=== PATIENT | male | born 1945 | race Caucasian/White ===

== ENCOUNTER → 2017-06-13 | Day surgery (SDC) | payer MEDICARE, OTHER ==
[~2017-06-13] MED LIST: ASPIRIN325 PO; ATORVASTATIN CA40 MG PO; BUMETANIDE0.25 MG/1 PO; FLONASE 0.05%50 MCG NASAL; LANSOPRAZOLE30 MG PO; LISINOPRIL20 MG PO; MINOXIDIL10 MG PO; NORCO 5-325 TA1 EACH PO; NORVASC2.5 MG PO; PROSCAR 5MG TABL5 M1 PO; TOPROL XL25 MG PO; TRIAMCINOLONE A80 G2 TOP; UNICOMPLEX M TA1 TA1 PO; XALATAN2.5 ML OPHTHALMIC
[2017-06-13 10:05] LABS: HEMOGLOBIN 13.6 gm/dL (14.0-18.0); MCH 29.9 pg (26.0-34.0); MCHC 34.1 g/dL (28.0-37.0); MCV 87.7 fL (80.0-100.0); RBC 4.56 mil/uL (4.50-6.00); RDW-CV 13.2 % (10.5-14.5); WBC 8.4 thou/uL (4.0-11.0)
[2017-06-13 10:13] LABS: CALCIUM 9.2 mg/dL (8.5-10.1); CREATININE 4.1 mg/dL (0.6-1.3); POTASSIUM 4.4 mmol/L (3.5-5.1)
[2017-06-13 10:18] LABS: ALBUMIN 3.8 g/dL (3.4-5.0); TOTAL BILIRUBIN 0.7 mg/dL (<0.1-1.0); TOTAL PROTEIN 7.3 g/dL (6.4-8.2)
--- NOTE | 2017-06-13 15:24 | EKG ---
[place] [address] ELECTROCARDIOGRAM REPORT Name: SVITLANA VITALE Room: [facility]#: [id number] Admission: 06/13/17 Attend Phys: Jam Jordan DO Discharge: Date of : 45 Report #: [id number] THIS REPORT FOR: //name// [facility] Test Date: 2017-06-13 Test Time: 10:11:54 Pat Name: SVITLANA VITALE Department: Room: Gender: M Nursery Teacher: : 1945 Requested By: Jam Jordan Order Number: [id number] Reading MD: Nathanael Royal Measurements Intervals [place] Rate: 56 P: 53 SC: 185 QRS: 9 QRSD: 107 T: 45 QT: 450 QTc: 435 Interpretive Statements Sinus rhythm No previous ECG available for comparison Electronically Signed On 06-13-2017 15:24:42 CDT by Nathanael Royal [email or web address] <ELECTRONICALLY SIGNED> By: Nathanael Royal MD, [facility] 06/13/17 1524 1011 1011 Nathanael Royal MD, FACC /EPI
--- NOTE | 2017-06-14 12:23 | OP ---
[address] [address] OPERATIVE REPORT Name: IAMSVITLANA Hai Room: [facility]#: [id number] Admission: 06/13/17 Attend Phys: Jam Jordan DO Discharge: Date of : 45 Report #: [id number] THIS REPORT FOR: //name// CC: Bebeto Jordan DATE OF SERVICE: 06/13/2017 PREOPERATIVE DIAGNOSIS: Chronic kidney disease. POSTOPERATIVE DIAGNOSIS: Chronic kidney disease. OPERATION: Creation of left radiocephalic arteriovenous fistula. SURGEON: Jam Jordan DO TRANSIT AUTHORITY POLICE OFFICER: ZHENG Fraser. ANESTHESIA: LMA. ESTIMATED BLOOD LOSS: 50 mL. FLUIDS: Included 250 crystalloid. URINE OUTPUT: None. SPECIMENS: None. COMPLICATIONS: None. FINDINGS: The left cephalic vein at the wrist appeared to be adequate for access, dilated up to 3.5 mm without resistance. The left radial artery was about 4 mm in diameter and soft, excellent for inflow. After creation of the fistula, there was a good bruit auscultated at the forearm with the Doppler, overlying the course of the cephalic vein and an excellent distal radial artery Doppler signal as well that augmented with fistula compression. CLINICAL HISTORY: The patient is a 71-year-old man with known chronic kidney disease, nearing end-stage renal disease. Recommendations were made for preemptive access creation in anticipation in need of dialysis. Through venous vein mapping, his left cephalic vein was noted to be of good caliber throughout the course in the upper arm; therefore, recommendation was made to create the fistula distally as possible in the wrist. DETAILS OF PROCEDURE: After informed consent was obtained, the patient was taken to the operating room and placed on the OR bed in supine [place], [place] [address] OPERATIVE REPORT Name: SVITLANA VITALE Room: [facility].#: [id number] Admission: 06/13/17 Attend Phys: Jam Jordan DO Discharge: Date of : 45 Report #: [id number] administered LMA anesthesia by the anesthesia team. Left upper extremity was prepped and draped in the usual sterile fashion. Full timeout was performed, identifying correct patient and procedure. Next, a longitudinal incision made on the distal aspect of the left wrist. Dissection was carried down through skin and subcutaneous tissues, both sharply and with electrocautery. The cephalic vein was identified, was circumferentially mobilized and controlled with Silastic vessel loop. I then isolated out the left radial artery, controlled it proximally and distally with Silastic vessel loops in Tse fashion. At this point, I then administered 5000 units of intravenous heparin, this was allowed to circulate for 3 minutes. I then transected the vein distally, ligated stump with a 3-0 silk tie, especially the vein guaman, severely dilated the vein up to 3.5 mm without resistance. I then occluded the radial artery, made an arteriotomy, extended with Tse scissors and then performed end-to-side anastomosis with running 7-0 Prolene suture. Prior to completion of the suture line, the artery was allowed to fore and backbleed and the vein backbled. I then restored flow first up the fistula and then distally to the hand. At this point, he had a good bruit auscultated up this course of the cephalic vein in the forearm and good distal radial artery signal that augmented with fistula compression. At this point, the wound was irrigated with antibiotic solution, was closed in layers with 3-0 Vicryl and 4-0 Monocryl on skin. Dermabond was applied. All sponge, sharp and instrument counts reported correct x 2. He tolerated the procedure well and was transferred to recovery area in stable condition. <ELECTRONICALLY SIGNED> By: Jam Jordan DO 06/14/17 1223 1236 1328Aevelina Jordan DO /nt
== END | disposition home or self-care (01) ==
LOC: M.SUR 07:14
PROVIDERS: Surgery
DX: N18.6 End stage renal disease (principal); Z79.899 Other long term (current) drug therapy; Z79.82 Long term (current) use of aspirin; Z79.891 Long term (current) use of opiate analgesic

== ENCOUNTER 2019-03-25 18:27 | Emergency (ER) | payer MEDICARE, OTHER ==
[~2019-03-25] VITALS: Ht 182.9 cm; Wt 90.7 kg
[2019-03-25 19:11] LABS: ABSOLUTE EOSINOPHILS 1.1 thou/uL (0.0-0.7); ABSOLUTE LYMPHOCYTES 1.1 thou/uL (0.8-5.3); ABSOLUTE MONOCYTES 0.6 thou/uL (0.0-1.2); ABSOLUTE NEUTROPHILS 8.3 thou/uL (1.6-8.1); BASOPHILS 0.3 %; EOSINOPHILS 9.8 %; HEMATOCRIT 24.8 % (42.0-52.0); HEMOGLOBIN 8.9 gm/dL (14.0-18.0); LYMPHOCYTES 9.9 %; MCH 31.6 pg (26.0-34.0); MCHC 35.8 g/dL (28.0-37.0); MCV 88.1 fL (80.0-100.0); MONOCYTES 5.2 %; MPV 6.8 fl. (7.2-11.1); NUCLEATED RBCS 0 /100WBC; PLATELET COUNT* 337 thou/uL (150-400); POLYS 74.8 %; RBC 2.82 mil/uL (4.50-6.00); RDW-CV 13.6 % (10.5-14.5); WBC 11.1 thou/uL (4.0-11.0)
[2019-03-25 19:18] LABS: CALCIUM 7.9 mg/dL (8.5-10.1); CREATININE 5.5 mg/dL (0.6-1.3); POTASSIUM 4.4 mmol/L (3.5-5.1)
[2019-03-25 19:30] LABS: ALBUMIN 2.3 g/dL (3.4-5.0); TOTAL BILIRUBIN 0.4 mg/dL (<0.1-1.0); TOTAL PROTEIN 5.8 g/dL (6.4-8.2)
[2019-03-25 21:21] VITALS: BP 120/58
--- NOTE | 2019-03-26 09:22 | EKG ---
[place] [address] ELECTROCARDIOGRAM REPORT Name: SVITLANA VITALE [id number] Admission: 03/25/19 Attend Phys: Discharge: 03/25/19 Date of : 45 Report #: [id number] THIS REPORT FOR: //name// [facility] ED Test Date: 2019-03-25 Test Time: 18:35:01 Pat Name: SVITLANA VITALE Department: Room: Gender: Side Sawyer: : 1945 Requested By: Dinesh Rosenberg Order Number: [id number] MD: Nathanael Royal Measurements Intervals [place] Rate: 74 P: 74 TX: 172 QRS: 49 QRSD: 102 T: 64 QT: 413 QTc: 459 Interpretive Statements Sinus rhythm Baseline wander in lead(s) V6 Compared to ECG 06/13/2017 10:11:54 No significant changes Electronically Signed On 03-26-2019 9:22:01 BOAT LABORER by Nathanael Royal [email or web address] <ELECTRONICALLY SIGNED> By: Nathanael Royal MD, [facility] 03/26/19 0922 1835 1835 Nathanael Royal MD, FACC /EPI
== END 2019-03-25 21:24 | disposition home or self-care (01) ==
LOC: M.ERS 18:27
PROVIDERS: Emergency Medicine
DX: I48.0 Paroxysmal atrial fibrillation (principal); I10 Essential (primary) hypertension; E78.00 Pure hypercholesterolemia, unspecified

== ENCOUNTER 2019-04-29 12:24 | Inpatient (IN) | payer MEDICARE, OTHER ==
[~2019-04-29] VITALS: Ht 182.9 cm; Wt 83.6 kg
[~2019-04-29 12:24] MED LIST changes: -ATORVASTATIN CA40 MG PO; +LIPITOR40 MG PO
[2019-04-29 12:31] VITALS: BP 141/87
[2019-04-29] MEDS ORDERED: MINOXIDIL2.5 MG PO (12:42)
[2019-04-29] MEDS ORDERED: ELIQUIS5 MG PO (12:42)
[2019-04-29] MEDS ORDERED: PRO-STAT LIQUID30 M1 PO (12:43)
[2019-04-29] MEDS ORDERED: PROPAFENONE HC325 MG PO (12:43)
[2019-04-29] MEDS ORDERED: MIRALAX119 GM PO (12:43)
[2019-04-29] MEDS ORDERED: NASACORT10.8 ML TOP (12:44)
[2019-04-29 12:51] LABS: ABSOLUTE BASOPHILS 0.1 thou/uL (0.0-0.2); ABSOLUTE EOSINOPHILS 0.2 thou/uL (0.0-0.7); ABSOLUTE MONOCYTES 0.6 thou/uL (0.0-1.2); ABSOLUTE NEUTROPHILS 10.4 thou/uL (1.6-8.1); BASOPHILS 0.7 %; EOSINOPHILS 1.8 %; HEMATOCRIT 24.4 % (42.0-52.0); HEMOGLOBIN 8.3 gm/dL (14.0-18.0); LYMPHOCYTES 8.1 %; MCH 29.5 pg (26.0-34.0); MCHC 33.9 g/dL (28.0-37.0); MONOCYTES 4.6 %; MPV 6.4 fl. (7.2-11.1); NUCLEATED RBCS 0 /100WBC; PLATELET COUNT* 338 thou/uL (150-400); POLYS 84.8 %; RBC 2.81 mil/uL (4.50-6.00); WBC 12.2 thou/uL (4.0-11.0)
[2019-04-29 13:02] LABS: APTT 83.2 Seconds (25.0-31.3); INR 1.3; PROTIME 13.4 Seconds (9.20-11.50)
[2019-04-29 13:08] LABS: CALCIUM 8.9 mg/dL (8.5-10.1); CREATININE 3.6 mg/dL (0.6-1.3); POTASSIUM 3.8 mmol/L (3.5-5.1)
[2019-04-29 13:19] LABS: ALBUMIN 2.5 g/dL (3.4-5.0); TOTAL BILIRUBIN 0.4 mg/dL (<0.1-1.0); TOTAL PROTEIN 6.9 g/dL (6.4-8.2)
[2019-04-29 14:42] LABS: INFLUENZA A ANTIGEN Negative (Negative); INFLUENZA B ANTIGEN Negative (Negative)
[2019-04-29 15:49] VITALS: BP 128/68
[2019-04-29 16:20] VITALS: BP 144/88
--- NOTE | 2019-04-29 17:21 | 2DMMODE ---
[place] [address] 2 D/M-MODE ECHOCARDIOGRAM Name: SVITLANA VITALE Room: [address] IN ..#: [id number] Admission: 04/29/19 Attend Phys: Kenya guerrero Sa Discharge: Date of : 45 Date of Service: 04/29/19 1720 Report #: [id number] THIS REPORT FOR: cc: George Elizondo Chad W. DO Blick,Nathanael Nicole MD [facility] ~ APPROVED REPORT Study performed: 04/29/2019 15:21:31 EXAM: Comprehensive 2D, Doppler, and color-flow Echocardiogram Patient Location: In-Patient Room #: er Status: routine BSA: 2.08 HR: 68 bpm BP: 134/79 mmHg Rhythm: NSR Other Information Study Quality: Good Indications Dyspnea 2D Dimensions IVSd: 14.17 (7-11mm) LVOT Diam: 20.65 (18-24mm) LVDd: 54.17 mm PWd: 11.95 (7-11mm) Ascending Ao: 34.33 (22-36mm) LVDs: 33.35 (25-40mm) Aortic Root: 36.52 mm Volumes Left Atrial Volume (Systole) LA ESV Index: 55.30 mL/m2 Aortic Valve AoV Peak Hiram.: 1.85 m/s AO Peak Gr.: 13.73 mmHg LVOT Max P.74 mmHg AO Mean Gr.: 7.55 mmHg LVOT Mean P.43 mmHg LVOT Max V: 1.39 m/s AO V2 VTI: 39.00 cm LVOT Mean V: 0.84 m/s RAYSHAWN (VTI): 2.68 cm2 LVOT V1 VTI: 31.17 [place] [address] 2 D/M-MODE ECHOCARDIOGRAM Name: SVITLANA VITALE Room: [address]#: [id number] Admission: 04/29/19 Attend Phys: Kenya guerrero Sa Discharge: Date of : 45 Date of Service: 04/29/19 1720 Report #: [id number] Mitral Valve E/A Ratio: 1.08 MV Decel. Time: 212.37 ms MV E Max Hiram.: 1.04 m/s MV PHT: 61.59 ms MVA (PHT): 3.57 cm2 TDI E/Lateral E': 10.40 E/Medial E': 11.56 Medial E' Hiram.: 0.09 m/s Lateral E' Hiram.: 0.10 m/s Pulmonary Valve PV Peak Hiram.: 1.42 m/s PV Peak Gr.: 8.09 mmHg Tricuspid Valve RAP Estimate: 5.00 mmHg TR Peak Gr.: 48.95 mmHg RVSP: 54.00 mmHg PA Pressure: 54.00 mmHg Left Ventricle The left ventricle is normal size. There is normal LV segmental wall motion. Mild concentric left ventricular hypertrophy. Left ventricular systolic function is normal. The left ventricular ejection fraction is within the normal range. LVEF is 60-65%. Right Ventricle Right ventricle is dilated. The right ventricular systolic function is normal. Atria Left atrium is severely dilated. Right atrium is dilated. Aortic Valve Mild aortic valve sclerosis. No aortic regurgitation is present. Mild aortic stenosis. Mitral Valve The mitral valve is normal in structure. There is no mitral valve regurgitation noted. No evidence of mitral valve stenosis. Tricuspid Valve The tricuspid valve is normal in structure. Mild tricuspid regurgitation. estimated pa pressure 55 [place] [address] 2 D/M-MODE ECHOCARDIOGRAM Name: SVITLANA VITALE Room: [address]#: [id number] Admission: 04/29/19 Attend Phys: Kenya guerrero Sa Discharge: Date of : 45 Date of Service: 04/29/19 1720 Report #: [id number] The pulmonary valve is normal in structure. Mild pulmonic regurgitation. Great Vessels The aortic root is normal in size. IVC is normal in size and collapses >50% with inspiration. Pericardium There is no pericardial effusion. <Conclusion> Mild concentric left ventricular hypertrophy. LVEF is 60-65%. Mild aortic stenosis. Left atrium is severely dilated. Mild tricuspid regurgitation. estimated pa pressure 55 mm Hg <ELECTRONICALLY SIGNED> By: Nathanael Royal MD, FACC 04/29/191719 19 19 Nathanael Royal MD, FACC /INF
[2019-04-29 19:50] VITALS: BP 115/66
[2019-04-30 00:14] VITALS: BP 140/78
[2019-04-30 03:41] VITALS: BP 136/78
[2019-04-30 05:00] LABS: HEMATOCRIT 22.6 % (42.0-52.0); HEMOGLOBIN 7.6 gm/dL (14.0-18.0); MCH 29.4 pg (26.0-34.0); MCHC 33.5 g/dL (28.0-37.0); MCV 87.7 fL (80.0-100.0); MPV 6.8 fl. (7.2-11.1); RBC 2.58 mil/uL (4.50-6.00); RDW-CV 14.8 % (10.5-14.5); WBC 11.3 thou/uL (4.0-11.0)
[2019-04-30 05:10] LABS: CALCIUM 8.1 mg/dL (8.5-10.1); MAGNESIUM 1.9 mg/dL (1.8-2.4); PHOSPHORUS* 3.6 mg/dL (2.5-4.9); POTASSIUM 4.2 mmol/L (3.5-5.1)
[2019-04-30 08:00] VITALS: BP 130/80
[2019-04-30] MEDS ORDERED: COLACE100 MG PO (09:04)
[2019-04-30 12:00] VITALS: BP 136/73
[2019-04-30] MEDS ORDERED: ZINC50 M2 PO (13:55)
[2019-04-30 16:00] VITALS: BP 151/79
[2019-04-30 20:29] VITALS: BP 137/81
[2019-05-01 00:13] VITALS: BP 158/89
[2019-05-01 04:36] LABS: ALBUMIN 1.7 g/dL (3.4-5.0); CALCIUM 7.9 mg/dL (8.5-10.1); PHOSPHORUS* 3.4 mg/dL (2.5-4.9); POTASSIUM 4.1 mmol/L (3.5-5.1)
[2019-05-01 04:37] LABS: CREATININE 7.2 mg/dL (0.6-1.3)
[2019-05-01 04:39] VITALS: BP 161/93
[2019-05-01 08:00] VITALS: BP 145/55; BP 161/91
[2019-05-01 08:38] LABS: ABSOLUTE EOSINOPHILS 0.6 thou/uL (0.0-0.7); ABSOLUTE LYMPHOCYTES 0.8 thou/uL (0.8-5.3); ABSOLUTE MONOCYTES 0.5 thou/uL (0.0-1.2); ABSOLUTE NEUTROPHILS 6.7 thou/uL (1.6-8.1); BASOPHILS 0.4 %; EOSINOPHILS 7.3 %; HEMATOCRIT 20.6 % (42.0-52.0); HEMOGLOBIN 7.1 gm/dL (14.0-18.0); LYMPHOCYTES 8.9 %; MCH 29.9 pg (26.0-34.0); MCHC 34.3 g/dL (28.0-37.0); MONOCYTES 5.7 %; MPV 6.5 fl. (7.2-11.1); NUCLEATED RBCS 0 /100WBC; PLATELET COUNT* 271 thou/uL (150-400); POLYS 77.7 %; RBC 2.37 mil/uL (4.50-6.00); RDW-CV 15.2 % (10.5-14.5); WBC 8.7 thou/uL (4.0-11.0)
[2019-05-01 15:43] VITALS: BP 169/94
[2019-05-01 20:00] VITALS: BP 149/94
[2019-05-02] VITALS: BP 168/96
[2019-05-02 04:00] VITALS: BP 155/84
[2019-05-02 04:46] LABS: HEMATOCRIT 21.1 % (42.0-52.0); HEMOGLOBIN 7.2 gm/dL (14.0-18.0); MCH 29.5 pg (26.0-34.0); MCV 86.8 fL (80.0-100.0); MPV 6.7 fl. (7.2-11.1); RBC 2.43 mil/uL (4.50-6.00); RDW-CV 14.9 % (10.5-14.5); WBC 6.8 thou/uL (4.0-11.0)
[2019-05-02 05:03] LABS: ALBUMIN 1.7 g/dL (3.4-5.0); CALCIUM 8.2 mg/dL (8.5-10.1); MAGNESIUM 1.9 mg/dL (1.8-2.4); PHOSPHORUS* 3.5 mg/dL (2.5-4.9)
[2019-05-02 05:17] LABS: CREATININE 5.1 mg/dL (0.6-1.3)
[2019-05-02 08:15] VITALS: BP 143/83
--- NOTE | 2019-05-02 08:51 | CON ---
[address] [address] CONSULTATION Name: IAMSVITLANA Hai Room: [address] IN M.R.#: [id number] Admission: 04/29/19 Attend Phys: Kenya Blackburn Discharge: Date of : 45 Report #: [id number] THIS REPORT FOR: //name// cc: George Elizondo Chad W. DO ~ THIS REPORT FOR: //name// CC: George August DATE OF SERVICE: 04/30/2019 REQUESTING PHYSICIAN: Kenya August MD REASON FOR CONSULTATION: Assist in providing dialysis. HISTORY OF PRESENT ILLNESS: The patient is a very pleasant 73-year-old gentleman with medical history significant for autosomal dominant polycystic kidney disease, history of progressive renal failure and finally underwent bilateral nephrectomies in March of this year at [facility], became dialysis dependent, on dialysis Saturday, Saturday, Saturday schedule at [facility]. He presents with complaints of shortness of breath. A chest x-ray was done, was diagnosed with bilateral pneumonia, and admitted to the hospital. PAST MEDICAL HISTORY: As I mentioned earlier. In addition to that, he also has hypertension. SOCIAL HISTORY: No tobacco, no alcohol abuse. FAMILY HISTORY: Noncontributory. REVIEW OF SYSTEMS: Positive for shortness of breath. Otherwise, negative. Subjectively, he feels much better now than on admission. PHYSICAL EXAMINATION: GENERAL: Awake, alert, oriented, in no acute distress. VITAL SIGNS: Reviewed. HEENT: Pupils round. NECK: Supple. LUNGS: Bibasilar coarse breath sounds. CARDIOVASCULAR: Regular rate. ABDOMEN: Obese, soft. EXTREMITIES: Lower extremities, trace edema. He has [place] [address] CONSULTATION Name: SVITLANA VITALE Room: [address] IN [facility]#: [id number] Admission: 04/29/19 Attend Phys: Kenya guerrero [place] Discharge: Date of : 45 Report #: [id number] ASSESSMENT: 1. End-stage renal disease. 2. Respiratory failure due to bilateral pneumonia. 3. History of polycystic kidney disease, status post bilateral nephrectomy. 4. History of hypertension. PLAN: 1. Dialysis tomorrow. 2. Continue antibiotics. The patient is tentatively scheduled for a live donor kidney transplant on 05/11, but at this point I think we have to postpone that surgery due to pneumonia. I doubt that he will completely recover from his pneumonia and I do not think he can tolerate being immunosuppressed for the transplant in 12 days. Thank you very much. <ELECTRONICALLY SIGNED> By: Gabo Epperson MD 05/02/19 0851 1138 1259AlexMD анна Stanford
[2019-05-02 12:00] VITALS: BP 139/84
[2019-05-02 16:00] VITALS: BP 153/84
[2019-05-02 20:00] VITALS: BP 144/84
[2019-05-03] VITALS: BP 155/98
[2019-05-03 04:00] VITALS: BP 160/93
[2019-05-03 06:07] LABS: HEMATOCRIT 20.6 % (42.0-52.0); MCH 29.4 pg (26.0-34.0); MCHC 33.9 g/dL (28.0-37.0); MCV 86.8 fL (80.0-100.0); MPV 6.8 fl. (7.2-11.1); RBC 2.38 mil/uL (4.50-6.00); WBC 6.5 thou/uL (4.0-11.0)
[2019-05-03 06:23] LABS: ALBUMIN 1.7 g/dL (3.4-5.0); CALCIUM 8.3 mg/dL (8.5-10.1); MAGNESIUM 2.2 mg/dL (1.8-2.4); PHOSPHORUS* 4.7 mg/dL (2.5-4.9); POTASSIUM 3.9 mmol/L (3.5-5.1)
[2019-05-03 06:35] LABS: CREATININE 7.2 mg/dL (0.6-1.3)
[2019-05-03 08:34] VITALS: BP 169/94
[2019-05-03 11:59] VITALS: BP 172/99
[2019-05-03 15:57] VITALS: BP 158/89
[2019-05-03 20:00] VITALS: BP 165/97
[2019-05-04 00:30] VITALS: BP 169/97
[2019-05-04 02:21] VITALS: BP 208/118
[2019-05-04 04:31] VITALS: BP 169/97
[2019-05-04 08:00] VITALS: BP 165/99
[2019-05-04 08:20] LABS: CALCIUM 8.5 mg/dL (8.5-10.1); CREATININE 9.3 mg/dL (0.6-1.3); POTASSIUM 4.7 mmol/L (3.5-5.1)
[2019-05-04 16:00] VITALS: BP 153/91
[2019-05-04 20:00] VITALS: BP 134/86
[2019-05-05] VITALS (7 sets, daily range): BP systolic 135–167; BP diastolic 83–99
[2019-05-05 05:45] LABS: HEMATOCRIT 22.2 % (42.0-52.0); HEMOGLOBIN 7.6 gm/dL (14.0-18.0); MCH 29.4 pg (26.0-34.0); MCHC 34.2 g/dL (28.0-37.0); MPV 6.7 fl. (7.2-11.1); RBC 2.58 mil/uL (4.50-6.00); RDW-CV 15.2 % (10.5-14.5); WBC 6.4 thou/uL (4.0-11.0)
[2019-05-05 06:13] LABS: CALCIUM 8.8 mg/dL (8.5-10.1); PHOSPHORUS* 4.2 mg/dL (2.5-4.9); POTASSIUM 4.1 mmol/L (3.5-5.1)
[2019-05-05 06:15] LABS: CREATININE 6.4 mg/dL (0.6-1.3)
[2019-05-05 06:20] LABS: MAGNESIUM 2.1 mg/dL (1.8-2.4)
[2019-05-06 03:57] VITALS: BP 160/103; BP 160/93
[2019-05-06 08:00] VITALS: BP 165/88
[2019-05-06 16:00] VITALS: BP 130/77
[2019-05-06 20:00] VITALS: BP 143/82
[2019-05-07 00:09] VITALS: BP 139/86
[2019-05-07 08:07] VITALS: BP 153/88
[2019-05-07 12:00] VITALS: BP 132/94
[2019-05-07 14:15] LABS: ALBUMIN 2.3 g/dL (3.4-5.0); CALCIUM 8.9 mg/dL (8.5-10.1); CREATININE 6.8 mg/dL (0.6-1.3); POTASSIUM 4.3 mmol/L (3.5-5.1); TOTAL BILIRUBIN 1.2 mg/dL (<0.1-1.0); TOTAL PROTEIN 6.7 g/dL (6.4-8.2)
[2019-05-07 20:00] VITALS: BP 161/88
[2019-05-08] VITALS: BP 155/88
[2019-05-08 04:00] VITALS: BP 96/48
[2019-05-08 07:38] VITALS: BP 132/80
[2019-05-08 08:55] LABS: ABSOLUTE BASOPHILS 0.1 thou/uL (0.0-0.2); ABSOLUTE EOSINOPHILS 0.7 thou/uL (0.0-0.7); ABSOLUTE LYMPHOCYTES 1.2 thou/uL (0.8-5.3); ABSOLUTE MONOCYTES 0.4 thou/uL (0.0-1.2); ABSOLUTE NEUTROPHILS 5.4 thou/uL (1.6-8.1); BASOPHILS 1.7 %; EOSINOPHILS 8.8 %; HEMOGLOBIN 7.5 gm/dL (14.0-18.0); LYMPHOCYTES 15.1 %; MCH 29.3 pg (26.0-34.0); MCHC 34.2 g/dL (28.0-37.0); MCV 85.6 fL (80.0-100.0); MONOCYTES 4.5 %; MPV 6.3 fl. (7.2-11.1); NUCLEATED RBCS 0 /100WBC; PLATELET COUNT* 333 thou/uL (150-400); POLYS 69.9 %; RBC 2.57 mil/uL (4.50-6.00); RDW-CV 15.3 % (10.5-14.5); WBC 7.8 thou/uL (4.0-11.0)
[2019-05-08 09:00] LABS: CALCIUM 8.5 mg/dL (8.5-10.1); CREATININE 7.1 mg/dL (0.6-1.3); POTASSIUM 4.3 mmol/L (3.5-5.1)
[2019-05-08 13:20] VITALS: BP 143/86
--- NOTE | 2019-05-08 14:57 | EKG ---
[place] [address] ELECTROCARDIOGRAM REPORT Name: SVITLANA VITALE Room: [address] IN [facility]#: [id number] Admission: 04/29/19 Attend Phys: Kenya guerrero Sa Discharge: Date of : 45 Date of Service: 04/29/19 1250 Report #: [id number] THIS REPORT FOR: //name// [facility] ED Test Date: 2019-04-29 Test Time: 12:50:48 Pat Name: SVITLANA VITALE Department: Room: [facility] Gender: M Fibre Optic Cable Splicer: : 1945 Requested By: Ramon Lowery Order Number: [id number] MD: Nathanael Royal Measurements Intervals [place] Rate: 73 P: 41 UT: 213 QRS: 14 QRSD: 118 T: 31 QT: 449 QTc: 495 Interpretive Statements Sinus rhythm Borderline prolonged UT interval Nonspecific intraventricular conduction delay Baseline wander in lead(s) V3 Compared to ECG 03/25/2019 18:35:01 Intraventricular conduction delay now present Electronically Signed On 04-29-2019 14:17:03 AGRICULTURAL LOAN OFFICER by Nathanael Royal [email or web address] <ELECTRONICALLY SIGNED> By: Nathanael Royal MD, [facility] 04/29/19 1417 1250 1250 Nathanael Royal MD, [facility] /EPI
[2019-05-08 21:42] VITALS: BP 147/91
[2019-05-09 08:00] VITALS: BP 139/89
[2019-05-09] MEDS ORDERED: LEVAQUIN 500 M500 M3 PO (10:54)
[2019-05-09] MEDS ORDERED: ACIDOPHILUS1 EAC4 PO (10:54)
[2019-05-09 14:22] VITALS: BP 139/89
== END 2019-05-09 15:00 | disposition home or self-care (01) | DRG 871 ==
LOC: M.ERS 12:24 → M.TBA-ER 13:49 → M.2W 13:49 → M.TBA-ER 14:04 → M.2W 16:02 → M.3W 05-08 16:09
PROVIDERS: Emergency Medicine Emergency Medical Services; Internal Medicine Nephrology; ADMIT Family Medicine
PROC: 5A09357 Assistance with Respiratory Ventilation, Less than 24 Consecutive Hours, Continuous Positive Airway Pressure (ICD-10-PCS; principal; 2019-04-29)
PROC: 5A09357 Assistance with Respiratory Ventilation, Less than 24 Consecutive Hours, Continuous Positive Airway Pressure (ICD-10-PCS; 2019-04-30)
PROC: 5A09357 Assistance with Respiratory Ventilation, Less than 24 Consecutive Hours, Continuous Positive Airway Pressure (ICD-10-PCS; 2019-05-01)
PROC: 5A09357 Assistance with Respiratory Ventilation, Less than 24 Consecutive Hours, Continuous Positive Airway Pressure (ICD-10-PCS; 2019-05-02)
PROC: 5A09357 Assistance with Respiratory Ventilation, Less than 24 Consecutive Hours, Continuous Positive Airway Pressure (ICD-10-PCS; 2019-05-03)
PROC: 5A09357 Assistance with Respiratory Ventilation, Less than 24 Consecutive Hours, Continuous Positive Airway Pressure (ICD-10-PCS; 2019-05-04)
PROC: 5A1D70Z Performance of Urinary Filtration, Intermittent, Less than 6 Hours Per Day (ICD-10-PCS; 2019-05-04)
PROC: 5A09357 Assistance with Respiratory Ventilation, Less than 24 Consecutive Hours, Continuous Positive Airway Pressure (ICD-10-PCS; 2019-05-05)
PROC: 5A09357 Assistance with Respiratory Ventilation, Less than 24 Consecutive Hours, Continuous Positive Airway Pressure (ICD-10-PCS; 2019-05-06)
PROC: 5A1D70Z Performance of Urinary Filtration, Intermittent, Less than 6 Hours Per Day (ICD-10-PCS; 2019-05-06)
PROC: 5A09357 Assistance with Respiratory Ventilation, Less than 24 Consecutive Hours, Continuous Positive Airway Pressure (ICD-10-PCS; 2019-05-07)
PROC: 5A1D70Z Performance of Urinary Filtration, Intermittent, Less than 6 Hours Per Day (ICD-10-PCS; 2019-05-08)
DX: A41.9 Sepsis, unspecified organism (principal); J96.01 Acute respiratory failure with hypoxia; N18.6 End stage renal disease; J15.6 Pneumonia due to other Gram-negative bacteria; E43 Unspecified severe protein-calorie malnutrition; I12.0 Hypertensive chronic kidney disease with stage 5 chronic kidney disease or end stage renal disease; D68.59 Other primary thrombophilia; Z66 Do not resuscitate; E78.5 Hyperlipidemia, unspecified; G47.33 Obstructive sleep apnea (adult) (pediatric); D64.9 Anemia, unspecified; E87.70 Fluid overload, unspecified; I48.91 Unspecified atrial fibrillation; E78.00 Pure hypercholesterolemia, unspecified; Z79.01 Long term (current) use of anticoagulants; Z79.82 Long term (current) use of aspirin; Z79.899 Other long term (current) drug therapy; Z90.5 Acquired absence of kidney; Z90.49 Acquired absence of other specified parts of digestive tract; Z82.49 Family history of ischemic heart disease and other diseases of the circulatory system; Z68.25 Body mass index [BMI] 25.0-25.9, adult; Z99.2 Dependence on renal dialysis; Z79.51 Long term (current) use of inhaled steroids; Z79.2 Long term (current) use of antibiotics

== ENCOUNTER 2020-01-20 16:02 | Inpatient (IN) | payer MEDICARE, OTHER ==
[~2020-01-20] VITALS: Ht 185.4 cm; Wt 79.4 kg
--- NOTE | ~2020-01-20 | OP ---
[address] [address] OPERATIVE REPORT Name: IAMSVITLANA Hai Room: [address] IN M.R.#: [id number] Admission: 01/20/20 Attend Phys: Kristine Jefferson MD Discharge: Date of : 45 Report #: [id number] THIS REPORT FOR: //name// cc: George Elizondo Chad W. DO ~ CC: George Jefferson DICTATED BY: Peri Menard DO DATE OF SERVICE: 01/21/2020 Dictating for Jamal Valadez DO. PREOPERATIVE DIAGNOSIS: Small-bowel obstruction. 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 PRIMARY SURGEON: Jamal Valadez DO. AMMUNITION AND EXPLOSIVES HANDLER: Peri Menard DO, PGY3 SECOND REHAB THERAPIST: Nixon Jefferson MS4. PROCEDURE PERFORMED: Diagnostic laparoscopy converted to laparotomy with release of small-bowel obstruction and small bowel resection with reanastomosis. ANESTHESIA: General and local. ESTIMATED BLOOD LOSS: 20 mL. SPECIMEN REMOVED: Jejunum. COMPLICATIONS: None. INDICATIONS FOR PROCEDURE: The patient is a 74-year-old gentleman that presented to the Emergency Department with complaint of worsening back and abdominal pain. He was admitted with imaging findings concerning for possible bowel obstruction. He underwent a CT abdomen and pelvis that showed some swelling in the right abdomen and distention of the bowel concerning for possible internal hernia; however, the radiology read and images were somewhat vague, so a small bowel follow through was initiated as a CT scan was performed without contrast at 1 hour and 40 minutes of contrast had not left the stomach. Some repeat lab work showed a developing lactic acidosis, so it was recommended that the patient go to the operating room for diagnostic laparoscopy, [place] [address] OPERATIVE REPORT Name: IAMSVITLANA Hai Room: [address] IN [facility]#: [id number] Admission: 01/20/20 Attend Phys: Kristine Jefferson MD Discharge: Date of : 45 Report #: [id number] exploratory laparotomy. The procedure, risks, benefits, possible complications to include bleeding, infection, injury to surrounding structures, need for additional surgery, need for ostomy creation, need for bowel resection, risks of anesthesia, and other risks of surgery were discussed with the patient in great detail. He voiced complete understanding and wished to proceed with surgery. DESCRIPTION OF PROCEDURE: Informed consent was obtained. The patient was taken to the operating room and placed supine on the operating room table. General endotracheal anesthesia was induced without difficulty. Sequential compression devices were placed on bilateral lower extremities. The patient was receiving antibiotics in the perioperative period. The abdomen was prepped and draped in the standard sterile fashion. A timeout was performed to ensure correct patient and procedure. We began by making a small supraumbilical vertical incision using a #15 blade scalpel. Incision was carried down through the subcutaneous tissues using electrocautery. Fascia was incised with electrocautery. Peritoneum was grasped between 2 hemostats and then incised with Metzenbaum scissors. Fascia was grasped between 2 Kochers; 0 Vicryl stay sutures were placed on either side of the fascial opening in a pfcuya-xj-bxphz fashion. A 12 mm Maribel trocar was inserted through the fascial opening. Abdomen was insufflated without difficulty. Laparoscopic camera was inserted and a sweep of the anterior abdominal contents was performed. The stomach appeared dilated transverse colon appeared normal. In the right abdomen, there was some dark dusky and necrotic-appearing small bowel and some inflammatory fluid in the pelvis and right lower quadrant. At this point, the procedure was converted to laparotomy. The camera was removed. Abdomen was desufflated. The trocar was removed. Laparoscopic equipment was passed off the field. The incision was extended inferiorly using a #10 blade scalpel. Incision was carried down through subcutaneous tissues using electrocautery. Once the incision was fully opened the unhealthy portion of bowel was easily visualized. This was grasped and pulled out the entirety of the small bowel was eviscerated and explored. There was an approximately 20 cm segment of jejunum that appeared dark necrotic dusky unhealthy. The remainder of the small bowel appeared quite healthy. The unhealthy portion of bowel tacked to the abdominal wall, initially by the adhesions. This was taken down using electrocautery and once the small bowel was eviscerated, there was an internal hernia secondary to another adhesion. This was also taken down using electrocautery. The unhealthy-appearing portion of bowel was resected. A window was made in the mesentery distal to the unhealthy-appearing small bowel using electrocautery and a hemostat a 75 mm CHIQUIS stapler was used to come across the bowel in a healthy-appearing area. Then, proximal to the unhealthy segment of bowel, another 75 mm load on the CHIQUIS stapler was used to come across this area at a healthy-appearing segment. Once this was done, the mesentery was taken down using the LigaSure. The specimen was passed off for permanent. Staple lines were inspected. They appeared to be hemostatic. The small bowel was again run from ligament of Treitz all the way to the terminal ileum; there did not [place] [address] OPERATIVE REPORT Name: SVITLANA VITALE Room: [address] IN [facility].#: [id number] Admission: 01/20/20 Attend Phys: Kristine Jefferson MD Discharge: Date of : 45 Report #: [id number] adhesions or unhealthy portions of bowel. The small bowel was then reanastomosed in a qalb-uj-ahcx fashion. The corner of the staple line on the antimesenteric side of both the proximal and distal segments were grasped with an Allis. Heavy curved Mayos were used to cut a corner off the bowel. Bowel was again grasped with an Allis and other 75 mm load on the CHIQUIS stapler was inserted through the two segments of bowel. They were anastomosed together. The open portion of the end of the bowel was then grasped 4 Allis, a 16 mm TA stapler was used to staple this closed. Our staple lines were again reinspected. The anastomosis was palpated and was widely patent. Of note, there was some fecalized contents in the distal small bowel. Three 3-0 Vicryl crotch stitches were placed at our staple line on the antimesenteric border. The mesenteric defect on the other side was then closed using 3-0 Vicryl suture in a running fashion. Again, our staple line was inspected. It appeared hemostatic. The bowel all appeared pink and viable and healthy. Small bowel was again inspected; there did not appear to be any other unhealthy portions of bowel. Small bowel was placed back into the abdominal cavity. Abdominal cavity was washed out using a liter of warm saline. The fascia at our incision was then closed using a #1 looped PDS in a running fashion. The subcutaneous tissues were reapproximated using 2-0 Vicryl suture in a simple interrupted and inverted fashion. Skin was reapproximated using hansel. A 30 mL of 0.5% Marcaine were used for local anesthesia. Abdomen was cleansed and dried. A clean sterile silver Mepilex was applied over our incision. The patient tolerated the procedure very well. He was allowed to awaken in the operating room, was transferred to the PACU in stable condition with plans to return to the floor. We also placed an abdominal binder on the patient at the conclusion of the case. By: [id number] Valadez DO /hernán
[~2020-01-20 16:02] MED LIST changes: +ACIDOPHILUS1 EAC4 PO; +COLACE100 MG PO; +ELIQUIS5 MG PO; +LEVAQUIN 500 M500 M3 PO; +MINOXIDIL2.5 MG PO; +MIRALAX119 GM PO; +NASACORT10.8 ML TOP; +PRO-STAT LIQUID30 M1 PO; +PROPAFENONE HC325 MG PO; +ZINC50 M2 PO
[2020-01-20 16:09] VITALS: BP 150/93
[2020-01-20 16:39] LABS: ABSOLUTE BASOPHILS 0.1 thou/uL (0.0-0.2); ABSOLUTE EOSINOPHILS 0.8 thou/uL (0.0-0.7); ABSOLUTE LYMPHOCYTES 1.6 thou/uL (0.8-5.3); ABSOLUTE MONOCYTES 0.8 thou/uL (0.0-1.2); ABSOLUTE NEUTROPHILS 10.6 thou/uL (1.6-8.1); BASOPHILS 0.9 %; EOSINOPHILS 5.6 %; HEMATOCRIT 37.8 % (42.0-52.0); HEMOGLOBIN 12.4 gm/dL (14.0-18.0); LYMPHOCYTES 11.4 %; MCH 28.3 pg (26.0-34.0); MCHC 32.8 g/dL (28.0-37.0); MCV 86.3 fL (80.0-100.0); MONOCYTES 5.5 %; MPV 7.1 fl. (7.2-11.1); NUCLEATED RBCS 0 /100WBC; PLATELET COUNT* 290 thou/uL (150-400); POLYS 76.6 %; RBC 4.38 mil/uL (4.50-6.00); RDW-CV 21.8 % (10.5-14.5); WBC 13.8 thou/uL (4.0-11.0)
[2020-01-20 16:50] LABS: CALCIUM 10.1 mg/dL (8.5-10.1); CREATININE 6.3 mg/dL (0.6-1.3); POTASSIUM 4.6 mmol/L (3.5-5.1)
[2020-01-20] MEDS ORDERED: CALCIUM ACETAT667 MG PO (16:54)
[2020-01-20 16:55] LABS: ALBUMIN 3.8 g/dL (3.4-5.0); TOTAL BILIRUBIN 0.3 mg/dL (<0.1-1.0)
[2020-01-20] MEDS ORDERED: PROSCAR 5MG TABL5 M1 PO (16:55)
[2020-01-20] MEDS ORDERED: MIDODRINE HCL10 MG PO (16:55)
[2020-01-20] MEDS ORDERED: RENVELA0.8 GM PO (16:56)
--- NOTE | 2020-01-20 17:18 | EKG ---
[place] [address] ELECTROCARDIOGRAM REPORT Name: SVITLANA VITALE Room: [facility]#: [id number] Admission: 01/20/20 Attend Phys: Discharge: Date of : 45 Date of Service: 01/20/20 1638 Report #: [id number] THIS REPORT FOR: //name// [facility] ED Test Date: 2020-01-20 Test Time: 16:38:23 Pat Name: SVITLANA VITALE Department: Room: Gender: Medical Concierge: [facility] : 1945 Requested By: Bonnie Aguirre Order Number: [id number] MD: Kenneth Bolton Measurements Intervals [place] Rate: 65 P: -70 AK: 223 QRS: 32 QRSD: 117 T: 69 QT: 446 QTc: 464 Interpretive Statements Sinus rhythm Prolonged AK interval Nonspecific intraventricular conduction delay Compared to ECG 04/29/2019 12:50:48 No significant changes noted Electronically Signed On 01-20-2020 17:18:16 VEHICLE FARE COLLECTOR by Kenneth Bolton [email or web address] <ELECTRONICALLY SIGNED> By: Kenneth Bolton MD, [facility] 01/20/20 1718 1638 1638 Kenneth Bolton MD, [facility] /EPI
[2020-01-20 17:34] LABS: HYPOCHROMASIA 1+; PLATELET ESTIMATE ADEQUATE
[2020-01-20 17:35] LABS: ANISOCYTOSIS Occasional; MICROCYTES Occasional
[2020-01-20 21:45] VITALS: BP 141/83
[2020-01-20 22:00] VITALS: BP 134/88
[2020-01-21 04:29] LABS: HEMOGLOBIN 13.6 gm/dL (14.0-18.0); MCH 28.2 pg (26.0-34.0); MCHC 32.4 g/dL (28.0-37.0); MCV 86.9 fL (80.0-100.0); MPV 7.2 fl. (7.2-11.1); RBC 4.83 mil/uL (4.50-6.00); RDW-CV 21.9 % (10.5-14.5); WBC 14.6 thou/uL (4.0-11.0)
[2020-01-21 04:46] LABS: ALBUMIN 3.4 g/dL (3.4-5.0); CALCIUM 9.6 mg/dL (8.5-10.1); TOTAL BILIRUBIN 0.4 mg/dL (<0.1-1.0); TOTAL PROTEIN 7.3 g/dL (6.4-8.2)
--- NOTE | 2020-01-21 05:08 | NUR ---
PATIENT ADMITTED TO FLOOR AT 2200. PT ALERT/ORIENTED X4. PT WITH FISTULA IN LT FOREARM WITH GAUZE DSG FROM DIALYSIS ON SATURDAY. PT C/O ABD AND BACK PAIN WHICH STARTED YESTERDAY. DR BRONSON'S RESIDENT TO FLOOR TO PULL NG TUBING 4MM AFTER REVIEWING XRAY. PT BECAME NAUSEATED AND HAD SMALL AMOUNT OF BROWN EMESIS. ZOFRAN GIVEN. PT ALSO GIVEN MORPHINE 4MG IV X1. NEW IV STARTED BY PROCESS OWNER IN RT FOREARM. PT SLEPT REST OF SHIFT. PT FROM ER WITH NG IN RT NARE. SMALL AMOUNT OF DRIED BLOOD NOTED. DRAINAGE IN CANNISTER CLEAR YELLOW APPROX 750ML OUT. FREQUENTLY USED ITEMS AND CALL LIGHT WITHIN REACH. SIDERAILS UPX2. PT ORIENTED TO ROOM/POLICIS AND VERBALIZES UNDERSTANDING. WILL CONTINUE TO MONITOR.
[2020-01-21 05:23] LABS: CREATININE 7.7 mg/dL (0.6-1.3); POTASSIUM 5.8 mmol/L (3.5-5.1)
[2020-01-21 08:00] VITALS: BP 97/69
--- NOTE | 2020-01-21 13:12 | NUR ---
Pt is A&O. Resides at home with . Active and independent. Pt has cpap. No hx of HH or SNF. Pt is current at [facility] on a MWF 530am shift, CM updated Rohan at [facility] of admission, CM to fax referral and flowsheets at me. Pt has NG tube in, surgery following. Anticipate dc in a few days. [facility] p:[phone] f:[phone]
[2020-01-21 15:07] LABS: CALCIUM 9.2 mg/dL (8.5-10.1)
[2020-01-21 15:08] LABS: CREATININE 9.1 mg/dL (0.6-1.3)
[2020-01-21 17:39] VITALS: BP 85/55
--- NOTE | 2020-01-21 18:56 | NUR ---
PATIENT IS CURRENTLY IN DIALYSIS. PATIENT IS TENTATIVELY PLANNED FOR SURGERY FOLLOWING DIALYSIS. PATIENT HAD CT SCAN THIS AFTERNOON AND SBFT THIS EVENING. PATIENT HAS HAD NG TUBE TO LOW INTERMITTENT SUCTION WHEN NOT AT TESTS. PATIENT BLOOD PRESSURE HAS RUN LOW TODAY, DR AVALOS NOTIFIED OF LOW BLOOD PRESSURES. PATIENT HAS HAD COMPLAINTS OF RLQ PAIN, TREATED PARTIALLY WITH MORPHINE. PATIENT'S NOTIFIED.
[2020-01-21 20:45] LABS: CALCIUM 9.3 mg/dL (8.5-10.1); CREATININE 4.6 mg/dL (0.6-1.3); POTASSIUM 4.1 mmol/L (3.5-5.1)
[2020-01-21 23:10] VITALS: BP 95/47
[2020-01-22 03:29] VITALS: BP 108/50
[2020-01-22 04:31] LABS: HEMATOCRIT 37.2 % (42.0-52.0); HEMOGLOBIN 12.2 gm/dL (14.0-18.0); MCHC 32.7 g/dL (28.0-37.0); MCV 88.5 fL (80.0-100.0); MPV 7.4 fl. (7.2-11.1); RBC 4.21 mil/uL (4.50-6.00); RDW-CV 22.1 % (10.5-14.5); WBC 12.3 thou/uL (4.0-11.0)
[2020-01-22 04:52] LABS: ALBUMIN 2.7 g/dL (3.4-5.0); CALCIUM 9.1 mg/dL (8.5-10.1); TOTAL BILIRUBIN 0.5 mg/dL (<0.1-1.0); TOTAL PROTEIN 5.9 g/dL (6.4-8.2)
[2020-01-22 05:01] LABS: CREATININE 7.7 mg/dL (0.6-1.3); POTASSIUM 5.9 mmol/L (3.5-5.1)
--- NOTE | 2020-01-22 07:54 | NUR ---
He arrived to the floor at 2310 from PACU. He had an laparotomy, small bowel resection. Midline abdominal incision is covered with island mepilex dressing. He has NG to LIS it's in his rt nares. He does have bowel sounds. He had pain meds x mostly because he gets abdominal cramps. Vitals have improved. He did have to start O2 and she set him on 4L n/c with monitor on. He has slept intermittenly.
[2020-01-22 07:55] VITALS: BP 104/56
--- NOTE | 2020-01-22 17:06 | NUR ---
PATIENT RESTING IN BED. PATIENT IS UP STANDBY ASSIST. PATIENT HAD DIALYSIS THIS AFTERNOON. PATIENT HAS HAD NO COMPLAINTS OF NAUSEA TODAY, REMAINS NPO WITH NG TUBE TO LIS. NG CLAMPED DURING DIALYSIS. PATIENT HAS HAD COMPLAINTS OF ABDOMINAL CRAMPING, FLEXERIL STARTED THIS EVENING. NO BOWEL MOVEMENT TODAY. PATIENT DENIES ANY NEEDS AT THIS TIME. CALL LIGHT WITHIN REACH.
[2020-01-22 20:00] VITALS: BP 153/72
[2020-01-23 00:07] VITALS: BP 177/90
[2020-01-23 04:12] VITALS: BP 174/86
[2020-01-23 05:06] LABS: ABSOLUTE BASOPHILS 0.1 thou/uL (0.0-0.2); ABSOLUTE EOSINOPHILS 0.6 thou/uL (0.0-0.7); ABSOLUTE LYMPHOCYTES 1.1 thou/uL (0.8-5.3); ABSOLUTE MONOCYTES 0.7 thou/uL (0.0-1.2); ABSOLUTE NEUTROPHILS 5.6 thou/uL (1.6-8.1); BASOPHILS 0.7 %; EOSINOPHILS 7.3 %; HEMATOCRIT 32.6 % (42.0-52.0); HEMOGLOBIN 10.8 gm/dL (14.0-18.0); LYMPHOCYTES 13.3 %; MCH 28.8 pg (26.0-34.0); MCHC 33.2 g/dL (28.0-37.0); MCV 86.8 fL (80.0-100.0); MONOCYTES 8.4 %; MPV 7.7 fl. (7.2-11.1); NUCLEATED RBCS 0 /100WBC; PLATELET COUNT* 195 thou/uL (150-400); POLYS 70.3 %; RBC 3.75 mil/uL (4.50-6.00); RDW-CV 22.4 % (10.5-14.5)
[2020-01-23 06:39] LABS: ALBUMIN 2.5 g/dL (3.4-5.0); CALCIUM 9.1 mg/dL (8.5-10.1); CREATININE 6.8 mg/dL (0.6-1.3); TOTAL BILIRUBIN 0.7 mg/dL (<0.1-1.0); TOTAL PROTEIN 5.6 g/dL (6.4-8.2)
[2020-01-23 07:14] VITALS: BP 111/72
[2020-01-23 08:00] VITALS: BP 141/85
[2020-01-23 15:48] VITALS: BP 137/90
--- NOTE | 2020-01-23 18:33 | NUR ---
PATIENT UP AND AMBULATED IN HALLS THIS AFTERNOON, SAT IN CHAIR THIS AM. NO COMPLAINTS OF PAIN. PATIENT HAS NOT YET PASSED FLATUS OR BELCHED; DR. ROUSSEAU IS AWARE. IVF AND SCHED ABX INFUSING ORDERED. DRESSING TO ABD REMAINS C/D/I, ABD BINDER IN PLACE. PATIENT LAYING ON LEFT SIDE AFTER BATH THIS AFTERNOON AND SORIANO/YELLOW DRAINAGE NOTED TO NG. DR. BOOKER NOTIFIED AND SHE NOTIFIED DR. ROUSSEAU. OK FOR PATIENT TO HAVE ICE CHIPS AND OK TO FLUSH NG TUBE IF NEEDED. LABETOLOL Q4 GIVEN ORDERED.
[2020-01-23 20:00] VITALS: BP 139/88
[2020-01-24] VITALS: BP 126/83
[2020-01-24 04:00] VITALS: BP 129/89
[2020-01-24 04:08] LABS: HEMATOCRIT 28.4 % (42.0-52.0); HEMOGLOBIN 9.4 gm/dL (14.0-18.0); MCH 28.6 pg (26.0-34.0); MCHC 33.2 g/dL (28.0-37.0); MCV 86.1 fL (80.0-100.0); MPV 7.3 fl. (7.2-11.1); RBC 3.3 mil/uL (4.50-6.00); RDW-CV 21.3 % (10.5-14.5); WBC 7.5 thou/uL (4.0-11.0)
[2020-01-24 04:35] LABS: ALBUMIN 2.2 g/dL (3.4-5.0); CALCIUM 8.6 mg/dL (8.5-10.1); CREATININE 9.7 mg/dL (0.6-1.3); POTASSIUM 4.2 mmol/L (3.5-5.1); TOTAL BILIRUBIN 0.6 mg/dL (<0.1-1.0); TOTAL PROTEIN 6.1 g/dL (6.4-8.2)
--- NOTE | 2020-01-24 05:46 | NUR ---
ASSUMED PT'S CARE @ 1900. PT ALERT AND ORIENTED. VSS ON RA. MEDS GIVEN PER EMAR. PT SLEPT OFF AND ON THIS SHIFT. DENIES PAIN. NO BM. REMAINS NPO BUT CAN HAVE ICE CHIPS. FELXERIL GIVEN @ HS PER PT'S REQUEST. PT AMBULATES [address] SEVERAL TIMES THIS SHIFT. WILL CONTINUE TO MONITOR.
[2020-01-24 08:00] VITALS: BP 110/76
[2020-01-24 13:12] LABS: HYPOCHROMASIA 1+; MICROCYTES Occasional; PLATELET ESTIMATE ADEQUATE
[2020-01-24 13:13] LABS: ANISOCYTOSIS 1+; OVALOCYTES Occasional
[2020-01-24 15:52] VITALS: BP 143/86
--- NOTE | 2020-01-24 18:20 | NUR ---
Pt remained A&O x4 for entire shift. Pt very pleasant with staff. Pt has walked the hallway 2x this shift. Pt ate about 1 foam cup of ice chips today. Pt had about 350ml of green fluid out of NG tube this shift. Pt has not passed gas, but did belch. Pt also given ducolax suppository. No pain noted this shift. Bed in low position, side rails up, call light within reach. Will continue to monitor.
[2020-01-24 20:00] VITALS: BP 139/72
[2020-01-25 00:26] VITALS: BP 140/69
[2020-01-25 04:19] VITALS: BP 123/73
--- NOTE | 2020-01-25 05:40 | NUR ---
ASSUMED PT'S CARE @ 1900. ALERT AND ORIENTED. VSS ON RA. MEDS GIVEN PER EMAR. PT SLEPT OFF AND ON. DID AMBULATE THE HALLWAY X2 THIS SHIFT. NGT TO R/NARE LIS. RFA IV WITH FLUIDS AND ABX INFUSING. REMAINS NPO WITH ICE SHIPS. CAN TAKE FLEXERIL. NO FLATUS THIS SHIFT. NO BM THIS SHIFT. MINI BURPS PER PT'S REPORT. MEPILEX TO MIDLINE ABD C/D/I. ABD BINDER IN PLACE. CALL LIGHT WITHIN REACH. HOURLY ROUNDINGS MADE. WILL CONTINUE TO MONITOR.
[2020-01-25 08:30] VITALS: BP 131/84
[2020-01-25 09:07] LABS: CALCIUM 9.3 mg/dL (8.5-10.1); POTASSIUM 4.9 mmol/L (3.5-5.1)
[2020-01-25 09:08] LABS: CREATININE 12.8 mg/dL (0.6-1.3)
[2020-01-25 09:41] LABS: HEMATOCRIT 29.6 % (42.0-52.0); MCH 28.8 pg (26.0-34.0); MCHC 33.6 g/dL (28.0-37.0); MCV 85.7 fL (80.0-100.0); MPV 6.6 fl. (7.2-11.1); RBC 3.46 mil/uL (4.50-6.00); RDW-CV 21.1 % (10.5-14.5); WBC 7.4 thou/uL (4.0-11.0)
[2020-01-25 15:43] VITALS: BP 128/88
--- NOTE | 2020-01-25 18:00 | NUR ---
PATIENT ALERT AND ORIENTED X 4. VITAL SIGNS STABLE ON ROOM AIR. UP WITH STAND BY ASSIST. UP TO CHAIR FOR MEALS. IV PATENT WITH FLUIDS INFUSING. ANTIBIOTICS GIVEN PER MAY. NG TUBE TO RIGHT NARE CLAMPED. TOLERATING CLEAR LIQUID DIET. ONE LITER OF FLUID REMOVED TODAY DURING DIALYSIS. DENIES PAIN AND NAUSEA AT THIS TIME. HOURLY ROUNDS MAINTAINED THROUGHOUT THE SHIFT. CALL LIGHT WITHIN REACH. NURSING WILL CONTINUE TO MONITOR.
[2020-01-25 19:50] VITALS: BP 114/70
[2020-01-26 00:30] VITALS: BP 121/68
[2020-01-26 04:18] LABS: HEMOGLOBIN 11.2 gm/dL (14.0-18.0); MCHC 33.9 g/dL (28.0-37.0); MCV 85.5 fL (80.0-100.0); MPV 6.7 fl. (7.2-11.1); RBC 3.86 mil/uL (4.50-6.00); RDW-CV 21.4 % (10.5-14.5)
[2020-01-26 04:39] LABS: ALBUMIN 2.7 g/dL (3.4-5.0); CALCIUM 9.7 mg/dL (8.5-10.1); MAGNESIUM 2.4 mg/dL (1.8-2.4); POTASSIUM 4.6 mmol/L (3.5-5.1); TOTAL BILIRUBIN 0.6 mg/dL (<0.1-1.0); TOTAL PROTEIN 7.7 g/dL (6.4-8.2)
[2020-01-26 05:01] LABS: CREATININE 8.9 mg/dL (0.6-1.3)
--- NOTE | 2020-01-26 07:31 | NUR ---
PT AOX4, PLEASANT. UP WALKING IN HALLS THIS SHIFT WITH STEADY GAIT. PASSING GAS, ACTIVE BOWEL SOUNDS. RELUCTANT TO HAVE ANY LIQUIDS DUE TO DIALYSIS BUT TAKING ICE AND SMALL AMOUNTS LIQUIDS WITHOUT N/V. DENIES PAIN OR PROBLEMS. NG CLAMPED. LFA FISTULA. ABD BINDER ON MIDLINE ABD INCISION DRSG CDI. RFA SL PER PT REQUEST, IV ABX GIVEN ORDERED. AM LABS. ABLE TO USE CALL LITE AND MAKE NEEDS KNOWN.
[2020-01-26 07:35] VITALS: BP 126/90
--- NOTE | 2020-01-26 11:40 | NUR ---
UP IN HALLS. NG DISCONTINUED. ON FULL LIQUID DIET NOW. POSSIBLE DISCHARGE IN 1-2 DAYS.
--- NOTE | 2020-01-26 13:28 | NUR ---
NG tube out. Full liquid diet. Anticipate dc in 1-2 days. CM to update [facility] BS.
--- NOTE | 2020-01-26 15:11 | PATH ---
[address] [address] PATHOLOGY RPT PROCEDURE Name: SVITLANA MOORE Room: [address] IN M.R.#: [id number] Admission: 01/20/20 Date of : 45 Discharge: Report #: [id number] Path Case #: [id number] [facility] Accession Number: [id number] . 01 Material submitted: . jejunum - JEJUNUM . 01 Clinician provided ICD-10: K56.609 N18.6 . 01 Clinical history: . SMALL BOWEL OBSTRUCTION, ESRD ON DIALYSIS . 02 Diagnosis: Jejunum: - Segment of benign small intestine with segmental necrosis, ulceration, ischemic features and hemorrhage in association with stricture. - Surgical margins viable. (ISUARA:yissel; 01/26/2020) QMS 01/26/2020 1102 Local . 02 Electronically signed: . Shadi Cottrell MD, Pathologist NPI- [id number] . 01 Gross description: . The specimen is received in formalin, labeled "Svitlana Moore, jejunum" and consists of an unoriented segment of small bowel measuring approximately 30 cm in length and ranging from 1.1-3.5 cm in diameter. Both margins are closed with a staple line. The serosa at both margins is pink and grossly viable with the remaining serosa showing extensive necrosis/hemorrhage. 1.0 cm from one stapled margin there is a marked stricture. Opening reveals a hemorrhagic necrotic mucosa with grossly viable mucosa at each margin. No masses are identified. Sales Operations Director sections are submitted as follows: . A1: Margin nearest stricture A2: Opposite margin A3: Stricture site showing viable and necrotic tissue A4: Random necrotic mucosa (SDY; 01/24/2020) SYU/SYU 01/26/2020 1101 Local . 02 Pathologist provided ICD-10: K63.9, K55.029, K56.609 . 02 [facility] [place] [address] PATHOLOGY RPT PROCEDURE Name: SVITLANA MOORE Room: [address] IN [facility]#: [id number] Admission: 01/20/20 Date of : 45 Discharge: Report #: [id number] Path Case #: [id number] Specimen Comment: A courtesy copy of this report has been sent to [phone] Specimen Comment: [phone], Specimen Comment: Report sent to ,DR FERRERA / DR CHAPPELL Performed at: [address] [facility] [address], [place], [place] [id number] MD Bubba Regalado MD Phone: [phone] Performed at: [address] [facility] [address] [address], [place], [place] [id number] MD Shadi Cottrell MD Phone: [phone]
[2020-01-26 16:00] VITALS: BP 147/86
--- NOTE | 2020-01-26 18:20 | NUR ---
PATIENT RESTING IN BED. PATIENT DENIES ANY PAIN. PATIENT IS UP AD PRABHA AND HAS WALKED HALLWAYS. PATIENT HAD NG TUBE REMOVED THIS AM AND IS TOLERATING FULL LIQUID DIET. PATIENT HAS MIDLINE INCISION APPROXIMATED WELL WITH JONAS AND OPEN TO AIR. PATIENT DENIES ANY NEEDS AT THIS TIME. CALL LIGHT WITHIN REACH.
[2020-01-26 20:30] VITALS: BP 132/81
[2020-01-26 23:54] VITALS: BP 134/85
[2020-01-27 04:22] LABS: CALCIUM 9.1 mg/dL (8.5-10.1); MAGNESIUM 2.5 mg/dL (1.8-2.4); POTASSIUM 4.4 mmol/L (3.5-5.1)
[2020-01-27 04:30] VITALS: BP 121/82
[2020-01-27 04:38] LABS: MCH 29.1 pg (26.0-34.0); MCHC 33.7 g/dL (28.0-37.0); MCV 86.5 fL (80.0-100.0); MPV 7.2 fl. (7.2-11.1); RBC 3.12 mil/uL (4.50-6.00); RDW-CV 20.7 % (10.5-14.5); WBC 6.8 thou/uL (4.0-11.0)
[2020-01-27 05:00] LABS: CREATININE 11.3 mg/dL (0.6-1.3)
[2020-01-27 05:03] LABS: HEMOGLOBIN 9.1 gm/dL (14.0-18.0)
--- NOTE | 2020-01-27 05:20 | NUR ---
PT SLEPT FAIRLY WELL OVERNIGHT. NO COMPLAINTS OF PAIN OR N/V. UP AD PRABHA IN ROOM AND IN HALLS WALKING. MIDLINE ABD INCISION WITH JONAS INTACT. L LIMB ALERT, AV FISTULA-TO HAVE DIALYSIS TODAY. RFA SLIV. AOX4, ROOM AIR. ANTICIPATING DISCHARGE HOME TODAY AFTER DIET ADVANCEMENT IF TOLERATES DIET WITHOUT N/V AND PAIN. ABLE TO USE CALL LITE AND MAKE NEEDS KNOWN.
[2020-01-27 11:10] VITALS: BP 115/81
[2020-01-27 12:15] VITALS: BP 115/81
[2020-01-27 13:37] VITALS: BP 115/81
--- NOTE | 2020-01-27 14:01 | CON ---
[address] [address] CONSULTATION Name: SVITLANA VITALE Hai Room: [address] IN M.R.#: [id number] Admission: 01/20/20 Attend Phys: Kristine Jefferson MD Discharge: Date of : 45 Report #: [id number] THIS REPORT FOR: //name// cc: George Elizondo Chad W. DO ~ DATE OF SERVICE: 01/21/2020 REQUESTING PHYSICIAN: Dr. Jefferson. REASON FOR CONSULTATION: Assist in providing dialysis. HISTORY OF PRESENT ILLNESS: The patient is a very pleasant 74-year-old man well known to me as he was my chronic kidney patient and now he is on dialysis. He had dialysis yesterday and was admitted with severe pain in his abdomen and pain was located in the right lower quadrant. Workup is in progress. His potassium today is 5.8. PAST MEDICAL HISTORY: The patient's medical history significant for polycystic kidney disease. He had both kidneys removed in anticipation of kidney transplant. He used to be hypertensive and slightly hypotensive now. Also has history of paroxysmal atrial fibrillation. SOCIAL HISTORY: No tobacco or alcohol abuse. FAMILY HISTORY: Noncontributory. REVIEW OF SYSTEMS: Positive for severe pain in his abdominal area. MEDICATIONS: Reviewed. PHYSICAL EXAMINATION: GENERAL: He is awake, alert, in pain. VITAL SIGNS: His blood pressure 97/69, heart rate is 100, respirations 18, temperature 37.7. HEENT: Pupils are round. NECK: Supple. LUNGS: Clear. CARDIOVASCULAR: Regular rate. ABDOMEN: Tender in right lower quadrant. DIAGNOSTIC DATA: He had abdominal CT scan done that revealed a small amount of intra-abdominal ascites and possible . There is a surgical changes of bilateral inguinal hernia repair present without recurrence of [place] [address] CONSULTATION Name: SVILTANA VITALE Room: [address] IN [facility]#: [id number] Admission: 01/20/20 Attend Phys: Kristine Jefferson MD Discharge: Date of : 45 Report #: [id number] There was a question about bowel ischemia or developing infarction. ASSESSMENT: 1. End-stage renal disease. 2. Hyperkalemia. 3. Abdominal pain. PLAN: Dialyzed him today for 2 hours for his potassium and the rest will be deferred to the surgical team. <ELECTRONICALLY SIGNED> By: Gabo Epperson MD 01/27/20 1401 [id number] [id number] Epperson MD /PMT
--- NOTE | 2020-01-27 14:40 | NUR ---
PATIENT DISCHARGED TO HOME. DISCHARGE PAPERS REVIEWED AND SIGNED. NO PRESCRIPTIONS. IV REMOVED. PATIENT DENIES ANY FURTHER NEEDS. PATIENT TAKEN AMBULATORY TO EXIT. LEFT WITH .
[2020-01-27 15:06] VITALS: BP 115/81
== END 2020-01-27 14:40 | disposition home or self-care (01) | DRG 329 ==
LOC: M.ERS 16:02 → M.3W 20:30 → M.ERS 20:30 → M.TBA-ER 20:30 → M.3W 20:46 → M.TBA-ER 23:05 → M.3W 23:06
PROVIDERS: Internal Medicine Nephrology; Nurse Practitioner Family; Surgery; ADMIT Internal Medicine; ATTEND Internal Medicine
DX: K56.609 Unspecified intestinal obstruction, unspecified as to partial versus complete obstruction (principal); N18.6 End stage renal disease; R65.10 Systemic inflammatory response syndrome (SIRS) of non-infectious origin without acute organ dysfunction; I12.0 Hypertensive chronic kidney disease with stage 5 chronic kidney disease or end stage renal disease; K55.9 Vascular disorder of intestine, unspecified; I48.0 Paroxysmal atrial fibrillation; E87.5 Hyperkalemia; E78.5 Hyperlipidemia, unspecified; Z20.828 Contact with and (suspected) exposure to other viral communicable diseases; Z99.2 Dependence on renal dialysis; Z79.82 Long term (current) use of aspirin; Z79.899 Other long term (current) drug therapy; Z53.31 Laparoscopic surgical procedure converted to open procedure; Z90.5 Acquired absence of kidney

== ENCOUNTER 2020-07-02 18:44 | Emergency (ER) | payer MEDICARE, OTHER ==
[~2020-07-02] VITALS: Ht 177.8 cm; Wt 81.7 kg
[~2020-07-02 18:44] MED LIST changes: +CALCIUM ACETAT667 MG PO; +MIDODRINE HCL10 MG PO; +RENVELA0.8 GM PO
[2020-07-02 20:34] LABS: ABSOLUTE BASOPHILS 0.1 thou/uL (0.0-0.2); ABSOLUTE EOSINOPHILS 0.8 thou/uL (0.0-0.7); ABSOLUTE LYMPHOCYTES 0.7 thou/uL (0.8-5.3); ABSOLUTE MONOCYTES 0.6 thou/uL (0.0-1.2); ABSOLUTE NEUTROPHILS 8.9 thou/uL (1.6-8.1); BASOPHILS 0.5 %; EOSINOPHILS 7.5 %; HEMOGLOBIN 11.1 gm/dL (14.0-18.0); LYMPHOCYTES 6.3 %; MCHC 32.7 g/dL (28.0-37.0); MCV 91.8 fL (80.0-100.0); MPV 6.9 fl. (7.2-11.1); NUCLEATED RBCS 0 /100WBC; PLATELET COUNT* 230 thou/uL (150-400); POLYS 80.7 %; WBC 11.1 thou/uL (4.0-11.0)
[2020-07-02 20:41] LABS: CALCIUM 9.2 mg/dL (8.5-10.1); CREATININE 9.6 mg/dL (0.6-1.3); POTASSIUM 4.8 mmol/L (3.5-5.1)
[2020-07-02 20:45] LABS: ALBUMIN 3.2 g/dL (3.4-5.0); TOTAL BILIRUBIN 0.4 mg/dL (<0.1-1.0); TOTAL PROTEIN 7.1 g/dL (6.4-8.2)
[2020-07-02 22:12] LABS: ANISOCYTOSIS 2+; PLATELET ESTIMATE ADEQUATE
[2020-07-02 22:14] LABS: POLYCHROMASIA Occasional
[2020-07-02 22:15] LABS: OVALOCYTES Occasional
[2020-07-02 22:45] VITALS: BP 118/70
== END 2020-07-02 22:45 | disposition short-term general hospital (02) ==
LOC: M.ERS 18:44
PROVIDERS: Physician Assistant
DX: I12.9 Hypertensive chronic kidney disease with stage 1 through stage 4 chronic kidney disease, or unspecified chronic kidney disease (principal); N18.9 Chronic kidney disease, unspecified; I48.91 Unspecified atrial fibrillation; K59.00 Constipation, unspecified; R93.5 Abnormal findings on diagnostic imaging of other abdominal regions, including retroperitoneum; Z20.822 Contact with and (suspected) exposure to COVID-19; Z99.2 Dependence on renal dialysis